=== PATIENT | male | born 1980 ===

== ENCOUNTER 2022-06-13 05:29 | Emergency (ER) | payer SELFPAY ==
[2022-06-13 05:51] VITALS: BP 146/90
[2022-06-13] MEDS ORDERED: ONDANSETRON 4 MG/2 ML INJ IM ONE (07:05)
[2022-06-13] MEDS ORDERED: MORPHINE 4 MG/1 ML INJ IM ONE ×3 (07:05→10:33)
[2022-06-13] MEDS ORDERED: hydrOXYzine PAMOATE 25 MG CAP PO ONE (07:06)
--- NOTE | 2022-06-13 07:13 | Emergency Department Report ---
HPI - General Chief Complaint: Nausea/Vomiting/Diarrhea Time Seen by Provider: 06/13/22 06:58 - HPI HPI: Room 17 Patient is a 42-year-old male present with chief complaint of pain and withdrawal symptoms. Patient has a history of colorectal CA status post colostomy and resection chemotherapy radiation (October 2021). Patient states he is on OxyContin and morphine and ran out of his medication approximately 2 days ago. Patient has been followed by palliative care physician at [facility]. The patient states he has had pain at his surgical site since he has not had his medication and feels as though he is withdrawing with symptoms including feeling cold, unable to sit still and general uneasiness. Patient denies nausea/vomiting. ED Past Medical Hx - Past Medical History Hx of Cancer: Yes (Colorectal CA status postsurgery) Hx Psychiatric Treatment: Yes (Anxiety) - Surgical History Additional Surgical History: Colectomy, colostomy - Family History Family history: no significant - Social History Smoking Status: Never Smoker Substance Use Type: None (Denies illicit drug use) - Medications Home Medications: Home Medications Medication Instructions Recorded Confirmed Last Taken Type oxyCODONE /ACETAMINOPHEN [Percocet 1 - 2 tab PO Q6HR PRN #7 tablet 06/13/22 Unknown Rx 5/325] ED Review of Systems ROS: Stated complaint: WITHDRAWLS SYMPTOMS Other details as noted in HPI Constitutional: chills Eyes: denies: eye pain ENT: denies: throat pain Respiratory: no symptoms reported Cardiovascular: denies: chest pain Endocrine: no symptoms reported Gastrointestinal: denies: nausea, vomiting Genitourinary: denies: dysuria Musculoskeletal: denies: back pain Neurological: denies: headache Psychiatric: anxiety Physical Exam - Physical Exam Vital Signs: Vital Signs 06/13/22 05:50 Temperature 98.1 F Pulse Rate 79 Respiratory 16 Rate Blood Pressure 146/90 [Right] O2 Sat by Pulse 98 Oximetry Physical Exam: GENERAL: The patient is well-developed well-nourished male lying on stretcher not appearing to be in acute distress. [] HEENT: Normocephalic. Atraumatic. Extraocular motions are intact. Patient has moist mucous membranes. NECK: Supple. Trachea midline CHEST/LUNGS: Clear to auscultation. There is no respiratory distress noted. HEART/CARDIOVASCULAR: Regular. There is no tachycardia. There is no gallop rub or murmur. ABDOMEN: Abdomen is soft, nontender. Patient has normal bowel sounds. There is no abdominal distention. Colostomy in place brown stool present SKIN: There is no rash. There is no edema. There is no diaphoresis. NEURO: The patient is awake, alert, and oriented. The patient is cooperative. The patient has no focal neurologic deficits. The patient has normal speech and gait. GCS 15 MUSCULOSKELETAL: There is no evidence of acute injury. ED Course Vital Signs 06/13/22 05:50 Temperature 98.1 F Pulse Rate 79 Respiratory 16 Rate Blood Pressure 146/90 [Right] O2 Sat by Pulse 98 Oximetry ED Medical Decision Making - Differential Diagnosis Chronic pain, opiate withdrawal Critical care attestation.: If time is entered above; I have spent that time in minutes in the direct care of this critically ill patient, excluding procedure time. ED Disposition Clinical Impression: Chronic pain, Opiate withdrawal Disposition: HOME / SELF CARE / HOMELESS Is pt being admited?: No Does the pt Need Aspirin: No Condition: Stable Instructions: Warning Signs of Opioid Misuse Additional Instructions: You need to contact your palliative care physician for further pain management. Return to the emergency department should you develop worsening symptoms, inability to tolerate food or liquids, high fever or any other concerns Prescriptions: oxyCODONE /ACETAMINOPHEN [Percocet 5/325] 1 - 2 tab PO Q6HR PRN #7 tablet PRN Reason: Pain Referrals: PRIMARY CARE, [Primary Care Provider] - 3-5 Days Your palliative care physicianWalker [Other] - KATIE Time of Disposition: 09:49
--- NOTE | 2022-06-14 17:30 | Electrocardiograph Report ---
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
== END 2022-06-13 11:08 | disposition home or self-care (01) ==
LOC: ED 05:29
DX: G89.29 Other chronic pain (principal); F11.23 Opioid dependence with withdrawal
CPT/HCPCS: 93005; 96372; 99283; J2270; J2405